=== PATIENT | male | born 1960 | race Caucasian/White ===

== ENCOUNTER 2021-05-30 13:35 | Emergency (ER) | payer BC ==
[2021-05-30] MEDS ORDERED: Sodium Chloride 0.9% 10 ML Syringe FLUSH PRN (13:45)
[2021-05-30] MEDS ORDERED: Sodium Chloride 0.9% 1,000 ML IV ONE (13:48)
--- NOTE | 2021-05-30 13:48 | EDM.PDOC ---
ED HPI GENERAL MEDICAL PROBLEM - General Chief Complaint: Skin Complaint Stated Complaint: FEVERS, COVID SCREENING Time Seen by Provider: 05/30/21 13:48 Source of Information: Reports: Patient, Family - History of Present Illness INITIAL COMMENTS - FREE TEXT/NARRATIVE: Estuarod, 60-year-old male, presents accompanied by his who is known positive COVID-19 for evaluation. He states having generalized rash to the upper extremities part of the abdomen the anterior inner thighs. This is been gradually worsening over the past 2 to 3 days. Despite having symptoms for likely greater than 10 days to some extent as his is on day nine today. Brit, his , had been seen last Monday with initial diagnosis after 8 days symptom. She had contacted and was not a candidate for monoclonal antibody. She called today stating that she was feeling worse having difficulty in breathing. When she asked for advice which was given and documented in her chart she stated that her was a technically and actually worse than her as well as having a rash. He presents for evaluation at this time. Low-grade temps 2 to 3 days ago with today being normal. There is been mild headache improved with significant cough throughout the course of symptoms. Has some noted pharyngitis he feels is related to severe cough. Denies shortness of breath of any specific issue other than when coughing. Denies chest pain other than with coughing. Denies having any nausea at this time. Has had no change in bowel or bladder with no frequency of urine nor hesitation. There was intermittent diarrhea which is resolved on evaluation today. He is not vaccinated. Onset: Unknown/Unsure Duration: Day(s):, Week(s): Location: Reports: Generalized Quality: Reports: Burning Severity: Moderate Improves with: Reports: None Worsens with: Reports: Other Context: Reports: Sick Contact (Contact) Associated Symptoms: Reports: Cough, Headaches, Rash - Related Data Allergies Allergy/AdvReac Type Severity Reaction Status Date / Time No Known Allergies Allergy Verified 05/30/21 14:44 Home Meds: Home Meds . [No Known Home Meds] 05/30/21 [History] Past Medical History HEENT History: Reports: Sinusitis ( postnasal drip) Cardiovascular History: Reports: Other (See Below) (V Tach, non-Ischemic cardiomyopathy, palpitations,) Respiratory History: Reports: None Neurological History: Reports: Neuropathy, Peripheral, Other (See Below) ( spinal stenosis of the lumbar region with neurogenic claudication, lumbar degenerative disc disease.) Hematologic History: Reports: Idiopathic Thrombocytopenia, Other (See Below) ( leukopenia) Social & Family History - Family History Family Medical History: No Pertinent Family History ED ROS GENERAL - Review of Systems Review Of Systems: Comprehensive ROS is negative, except as noted in HPI. ED EXAM, GENERAL - Physical Exam Exam: See Below Free Text/Narrative:: Alert, oriented, in no acute distress. There is no cyanosis nor pallor noted. No involvement of the auditory canals nor tympanic membranes. Nasal passages are pink and moist with no erythema. Oropharynx has a irritated appearance in the posterior pharyngeal region with slight cording but not your typical appearance of strep pharyngitis. PERRLA no icterus no injection EOM intact. Neck is soft supple no lymphadenopathy. No nuchal rigidity. There is mild tenderness to palpation of the superior anterior lymph nodes. Thorax is clear throughout with no wheezes nor crackles noted fine rhonchi at the base. Cardiac is S1 is 2 I do not appreciate any murmur. There is no flank pain to percussion. Bowel sounds are present with no tenderness to palpation. No edema to the lower extremities moves all extremities about radial pulse correlates with apical heart rate. Integument is examination shows he sandpaper type rash with minimal raised appearance to the forearms antecubitals axillary region as well as the back of the neck the flank slightly. He states it is present to the thighs anteriorly medially. Any examination or touch of the rash increases it is pruritic affect. #1 Interpretation EKG Date: 05/30/21 Time: 14:34 Rhythm: NSR Rate (Beats/Min): 69 [place]: Normal P-Wave: Present QRS: Normal ST-T: Normal QT: Normal Comparison: No Change (compared 28 May 2021) Course - Vital Signs Last Recorded V/S: Last Vital Signs Temp 97.0 F 05/30/21 13:46 Pulse 69 05/30/21 15:19 Resp 18 05/30/21 13:46 BP 128/88 05/30/21 15:19 Pulse Ox 100 05/30/21 15:19 - Orders/Labs/Meds Orders: Active Orders 24 hr Category Date Time Status Peripheral IV Care [RC] . DIRECTED Care 05/30/21 13:46 Active Sodium Chloride 0.9% [Saline Flush] Med 05/30/21 13:45 Active 10 ml FLUSH Q8HR PRN Peripheral IV Insertion Adult [OM.PC] Stat Oth 05/30/21 13:45 Ordered EKG 12 Lead [EK] Stat Ther 05/30/21 13:45 Ordered Medication Orders Sodium Chloride (Sodium Chloride 0.9% 10 Ml Syringe) 10 ml FLUSH Q8HR PRN PRN Reason: keep vein open Labs: Laboratory Tests 05/30/21 05/30/21 05/30/21 Range/Units 13:50 14:55 14:55 WBC 3.14 L (5.00-10.00) 10^3/uL RBC 4.67 (4.50-6.00) 10^6/uL Hgb 14.1 (13.0-17.0) g/dL Hct 40.1 (40.0-52.0) % MCV 85.9 D (82.0-92.0) fL MCH 30.2 (27.0-31.0) pg MCHC 35.2 (32.0-36.0) g/dL RDW 13.4 (11.5-14.5) % Plt Count 108 L (150-400) 10^3/uL MPV 8.1 (7.4-10.4) fL Immature Gran % (Auto) 0.3 (0.0-5.0) % Neut % (Auto) 57.3 (50.0-70.0) % Lymph % (Auto) 24.2 (20.0-40.0) % [place] % (Auto) 13.4 H (2.0-8.0) % Eos % (Auto) 4.8 H (1.0-3.0) % Baso % (Auto) 0.0 (0.0-1.0) % Neut # (Auto) 1.80 L (2.50-7.00) 10^3/uL Lymph # (Auto) 0.76 L (1.00-4.00) 10^3/uL [place] # (Auto) 0.42 (0.10-0.80) 10^3/uL Eos # (Auto) 0.15 (0.10-0.30) 10^3/uL Baso # (Auto) 0.00 (0.00-0.10) 10^3/uL Immature Gran # (Auto) 0.01 (0.00-0.50) 10^3/uL D-Dimer, Quantitative 570 H (<400) ng/mL Sodium (136-145) mmol/L Potassium (3.5-5.1) mmol/L Chloride (98-107) mmol/L Carbon Dioxide (21.0-32.0) mmol/L Anion Gap (5-15) mmol/L BUN (7-18) mg/dL Creatinine (0.51-1.17) mg/dL Est Cr Clr Drug Dosing mL/min Estimated GFR (MDRD) mL/min Glucose (70-140) mg/dL Lactic Acid (0.4-2.0) mmol/L Calcium (8.7-10.3) mg/dL Total Bilirubin (0.2-1.0) mg/dL AST (15-37) U/L ALT (14-63) U/L Alkaline Phosphatase (46-116) U/L Troponin I High Sens (0-76.000) pg/mL C-Reactive Protein (0.0-0.9) mg/dL Total Protein (6.4-8.2) g/dL Albumin (3.40-5.00) g/dL Influenza Type A RNA Negative (NEGATIVE) Influenza Type B RNA Negative (NEGATIVE) SARS-CoV-2 RNA (IDALIA) Positive H (NEGATIVE) 05/30/21 05/30/21 Range/Units 14:55 14:55 WBC (5.00-10.00) 10^3/uL RBC (4.50-6.00) 10^6/uL Hgb (13.0-17.0) g/dL Hct (40.0-52.0) % MCV (82.0-92.0) fL MCH (27.0-31.0) pg MCHC (32.0-36.0) g/dL RDW (11.5-14.5) % Plt Count (150-400) 10^3/uL MPV (7.4-10.4) fL Immature Gran % (Auto) (0.0-5.0) % Neut % (Auto) (50.0-70.0) % Lymph % (Auto) (20.0-40.0) % [place] % (Auto) (2.0-8.0) % Eos % (Auto) (1.0-3.0) % Baso % (Auto) (0.0-1.0) % Neut # (Auto) (2.50-7.00) 10^3/uL Lymph # (Auto) (1.00-4.00) 10^3/uL [place] # (Auto) (0.10-0.80) 10^3/uL Eos # (Auto) (0.10-0.30) 10^3/uL Baso # (Auto) (0.00-0.10) 10^3/uL Immature Gran # (Auto) (0.00-0.50) 10^3/uL D-Dimer, Quantitative (<400) ng/mL Sodium 142 (136-145) mmol/L Potassium 4.3 (3.5-5.1) mmol/L Chloride 108 H (98-107) mmol/L Carbon Dioxide 27.3 (21.0-32.0) mmol/L Anion Gap 11.0 (5-15) mmol/L BUN 15 (7-18) mg/dL Creatinine 0.70 (0.51-1.17) mg/dL Est Cr Clr Drug Dosing 97.62 mL/min Estimated GFR (MDRD) > 60 mL/min Glucose 101 (70-140) mg/dL Lactic Acid 0.8 (0.4-2.0) mmol/L Calcium 8.6 L (8.7-10.3) mg/dL Total Bilirubin 0.6 (0.2-1.0) mg/dL AST 22 (15-37) U/L ALT 31 (14-63) U/L Alkaline Phosphatase 78 (46-116) U/L Troponin I High Sens 5.600 (0-76.000) pg/mL C-Reactive Protein < 0.4 (0.0-0.9) mg/dL Total Protein 6.7 (6.4-8.2) g/dL Albumin 3.39 L (3.40-5.00) g/dL Influenza Type A RNA (NEGATIVE) Influenza Type B RNA (NEGATIVE) SARS-CoV-2 RNA (IDALIA) (NEGATIVE) Meds: Medications Generic Name Dose Route Start Last Admin Trade Name Freq PRN Reason Stop Dose Admin Sodium Chloride 10 ml 05/30/21 13:45 Sodium Chloride 0.9% 10 Ml Syringe FLUSH Q8HR PRN keep vein open Discontinued Medications Generic Name Dose Route Start Last Admin Trade Name Ramiro PRN Reason Stop Dose Admin Sodium Chloride 1,000 mls @ 999 mls/hr 05/30/21 13:48 05/30/21 14:51 Normal Saline IV 05/30/21 14:48 Not Given .BOLUS ONE Penicillin G Benzathine 1.2 millunits 05/30/21 15:36 05/30/21 16:01 Penicillin G Benzathine 1,200,000 Units/2 Ml Syringe IM 05/30/21 15:37 1.2 millunits ONETIME ONE Administration Triamcinolone Acetonide 15 gm 05/30/21 16:05 05/30/21 16:08 Triamcinolone Acetonide 0.1% Crm 15 Gm Tube TOP 05/30/21 16:06 1 applic ONETIME ONE Administration - Re-Assessments/Exams Free Text/Narrative Re-Assessment/Exam: 05/30/21 14:55 Questions why IV fluids have been ordered to which I state that it helps fill up the tank when intake is not complete/normal and it will also help in this situation of flushing some of the impurities of his system secondary of strep pharyngitis. COVID-19 is not resulted at this time but would also benefit renal perfusion. We do cancel IV, IV fluid at this time. 05/30/21 16:15 Discussion on the mildly positive D-dimer with no pulmonary symptoms, no shortness of breath, no infiltrate on x-ray. Estuardo declined CTA of the chest. Departure - Departure Time of Disposition: 16:04 Disposition: Home, Self-Care 01 Condition: Good Clinical Impression: Pruritic rash, Rash associated with COVID-19, Elevated d-dimer, Lab test positive for detection of COVID-19 virus, Pharyngitis due to group A beta hemolytic Streptococci - Discharge Information *PRESCRIPTION DRUG MONITORING PROGRAM REVIEWED*: Not Applicable *COPY OF PRESCRIPTION DRUG MONITORING REPORT IN PATIENT ARTEM: Not Applicable Instructions: Strep Throat, Adult, [id number], COVID-19: What to Do If You Are Sick- [facility] [place] (11/11/2020) Referrals: Torsten Stewart MD [Primary Care Provider] - Forms: ED Department Discharge Additional Instructions: Go home and rest until improving. triamcinolone cream to rash area for itching twice - three times daily sparingly as needed. Continue your isolation/quarantine with good hygiene for yourself as well as avoiding exposures to any other parties. Your lab work shows stable at this time, other than the D-Dimer, clot risk which is slightly elevated. Your testing shows an excellent oxygen saturation requiring no supplement, as well as a clear x-ray. This limits the risk as you have no respiratory concerns today The chest x-ray today is read as no developing pneumonia, so possibly you are nearing the conclusion of the illness Make sure you maintain good hydration as well as food intake. Contact for follow-up with your clinic as needed. Return to the emergency department outside of clinic hours or if you develop significant chest discomfort or severe shortness of breath. Sepsis Event Note (ED) - Focused Exam Vital Signs: Vital Signs Temp Pulse Resp BP Pulse Ox 05/30/21 15:19 69 128/88 100 05/30/21 13:46 97.0 F 79 18 121/82 99 - Problem List & Annotations (1) Pharyngitis due to group A beta hemolytic Streptococci SNOMED Code(s): 501767210, 872499969 Code(s): J02.0 - STREPTOCOCCAL PHARYNGITIS Status: Acute Priority: High Current Visit: Yes (2) Lab test positive for detection of COVID-19 virus SNOMED Code(s): 2427094657010875 Code(s): U07.1 - COVID-19 Status: Acute Current Visit: Yes (3) Rash associated with COVID-19 SNOMED Code(s): 268037909 Code(s): U07.1 - COVID-19; R21 - RASH AND OTHER NONSPECIFIC SKIN ERUPTION Status: Acute Priority: High Current Visit: Yes (4) Elevated d-dimer SNOMED Code(s): 423491145 Code(s): R79.89 - OTHER SPECIFIED ABNORMAL FINDINGS OF BLOOD CHEMISTRY Status: Acute Priority: Medium Current Visit: Yes Onset Date: ~05/30/21 Annotation/Comment:: Declines CTA chest - Problem List Review Problem List Initiated/Reviewed/Updated: Yes - My Orders Last 24 Hours: My Active Orders 05/30/21 13:45 Sodium Chloride 0.9% [Saline Flush] 10 ml FLUSH Q8HR PRN Peripheral IV Insertion Adult [OM.PC] Stat EKG 12 Lead [EK] Stat 05/30/21 13:46 Peripheral IV Care [RC] . DIRECTED - Assessment/Plan Last 24 Hours: My Active Orders 05/30/21 13:45 Sodium Chloride 0.9% [Saline Flush] 10 ml FLUSH Q8HR PRN Peripheral IV Insertion Adult [OM.PC] Stat EKG 12 Lead [EK] Stat 05/30/21 13:46 Peripheral IV Care [RC] . DIRECTED Plan: Go home and rest until improving. triamcinolone cream to rash area for itching twice - three times daily sparingly as needed. Continue your isolation/quarantine with good hygiene for yourself as well as av oiding exposures to any other parties. Your lab work shows stable at this time, other than the D-Dimer, clot risk which is slightly elevated. Your testing shows an excellent oxygen saturation requiri ng no supplement, as well as a clear x-ray. This limits the risk as you have no respiratory concerns today The chest x-ray today is read as no developing pneumonia, so possibly you are nearing the conclusion of the illness Make sure you maintain good hydration as well as food intake. Contact for follow-up with your clinic as needed. Return to the emergency department outside of clinic hours or if you develop significant chest discomfort or severe shortness of breath.
[2021-05-30 15:07] LABS: CORONAVIRUS COVID-19 NAA POSITIVE (NEGATIVE)
[2021-05-30 15:27] LABS: CHLORIDE,CL 108 mmol/L (98-107); SODIUM,NA 142 mmol/L (136-145)
[2021-05-30] MEDS ORDERED: Penicillin G Benzathine 1,200,000 Units/2 ML Syringe IM ONE (15:36)
--- NOTE | 2021-05-30 15:52 | CR ---
[id number] RAD/RAD Chest PA or AP 1V EXAM: SINGLE VIEW CHEST. INDICATION: COVID SHORTNESS OF BREATH COMPARISON: NO PREVIOUS SIMILAR EXAM IS AVAILABLE FINDINGS: The lungs are clear The cardiomediastinal contour is normal IMPRESSION: NO PNEUMONIA [facility] MD 05/30/21 [id number] Thank you for allowing us to participate in the care of your patient.
[2021-05-30] MEDS ORDERED: Triamcinolone Acetonide 0.1% Crm 15 GM Tube TOP ONE (16:05)
== END 2021-05-30 16:10 | disposition home or self-care (01) ==
LOC: KA.ED 13:35
DX: U07.1 COVID-19 (principal); L29.9 Pruritus, unspecified; R79.1 Abnormal coagulation profile; J02.0 Streptococcal pharyngitis; B95.0 Streptococcus, group A, as the cause of diseases classified elsewhere
CPT/HCPCS: 0240U; 36415; 71045; 80053; 83605; 84484; 85025; 85379; 86140; 87430; 93005; 96372; 99284; 99284-25; A9270-GY; J0561

== ENCOUNTER 2023-01-22 13:25 | Emergency (ER) | payer BC ==
[2023-01-22 13:41] VITALS: BP 133/82; PULSE 96
[2023-01-22] MEDS ORDERED: Acetaminophen/HYDROcodone 325-5 MG Tab PO ONE (14:22)
== END 2023-01-22 14:30 | disposition home or self-care (01) ==
LOC: KA.ED 13:25
DX: S30.1XXA Contusion of abdominal wall, initial encounter (principal); Z86.16 Personal history of COVID-19; W22.09XA Striking against other stationary object, initial encounter
CPT/HCPCS: 99283; Q3014